=== PATIENT | male | born 2000 | race Two or more races ===

== ENCOUNTER 2022-07-31 15:02 | Emergency (ER) | payer SELFPAY ==
[2022-07-31 16:25] LABS: BILIRUBIN,URINE NEGATIVE (NEGATIVE); GLUCOSE, URINE (UA) NEGATIVE (NEGATIVE); KETONES,URINE (UA) NEGATIVE (NEGATIVE); LEUKOCYTE ESTERASE, URINE NEGATIVE (NEGATIVE); NITRITE,URINE NEGATIVE (NEGATIVE); OCCULT BLOOD,URINE MODERATE (NEGATIVE); PROTEIN,URINE NEGATIVE (NEGATIVE); UROBILINOGEN,URINE 0.2 (NORMAL) E.U./dL (NORMAL)
[2022-07-31 16:29] LABS: BASOPHILS % (AUTO) 0.2 %; EOSINOPHILS % (AUTO) 0.3 %; HCT - HEMATOCRIT 45.7 % (42.0-52.0); LYMPHOCYTES % (AUTO) 15.3 %; MEAN CORPUSCULAR HEMOGLOBIN 28.5 pg (27.0-31.0); MEAN CORPUSCULAR HGB CONC 32.8 g/dL (32.0-36.0); MEAN CORPUSCULAR VOLUME 86.9 fL (80.0-94.0); MEAN PLATELET VOLUME 8.9 fL (7.4-11.4); MONOCYTES # (AUTO) 0.8 10^3/uL (0.0-1.0); NEUTROPHILS # (AUTO) 10.2 10^3/uL (1.5-6.6); NEUTROPHILS % (AUTO) 77.9 %; PLT - PLATELET COUNT 368 10^3/uL (130-450); RED BLOOD COUNT 5.26 10^6/uL (4.70-6.10); RED CELL DISTRIBUTION WIDTH 11.9 % (12.0-15.0); WHITE BLOOD COUNT 13.1 x10^3/uL (4.8-10.8)
[2022-07-31 16:31] LABS: CLARITY,URINE CLOUDY (CLEAR)
[2022-07-31 16:38] LABS: ALBUMIN 4.4 g/dL (3.2-5.5); BILIRUBIN,TOTAL 0.4 mg/dL (0.2-1.0); CALCIUM 9.5 mg/dL (8.5-10.3); CREATININE 0.8 mg/dL (0.6-1.2); POTASSIUM 3.5 mmol/L (3.5-5.0); TOTAL PROTEIN 8.9 g/dL (6.7-8.2)
[2022-07-31 16:47] LABS: BACTERIA,URINE None Seen /HPF (None Seen); SQUAMOUS EPITHELIAL CELL,UR NONE SEEN (<= Few); WBC,URINE 0-3 /HPF (0-3)
[2022-07-31] MEDS ORDERED: KETOROLAC 30 MG/ML VIAL IVP STA (18:13)
[2022-07-31] MEDS ORDERED: iohexoL-300 100 ML VIAL ONE (18:15)
--- NOTE | 2022-07-31 18:15 | ED Physician Documentation ---
PD HPI ABD PAIN - Stated complaint Stated Complaint: R SIDE RIB PAIN - Chief complaint Chief Complaint: Abd Pain - History obtained from History obtained from: Patient - History of Present Illness Timing - onset: How many days ago (5) Timing - duration: Days (5) Timing - details: Gradual onset Pain level max: 6 Pain level now: 5 Quality: Aching, Pain Location: RUQ Radiation: No: Chest, , Lower back, Left flank, Left shoulder, Right flank, Right shoulder, Upper back Worsened by: Eating, Moving, Palpation Associated symptoms: Nausea, Vomiting, Diarrhea. No: Fever, Hematemesis, Constipation, Melena, Hematochezia, Dysuria - Additional information Additional information: Patient is a 22-year-old male that states that about 5 days ago he developed right upper quadrant abdominal/rib pain. He states he had been coughing for about 4 days prior to this. The cough has since resolved but he still has intermittent pain. The pain lasts for about 30 minutes at a time. He states tonight it started after drinking milk and eating pie. No fevers. He states he has had some nausea, vomited once and diarrhea x1. Has not had similar symptoms previously. Does not smoke or drink. No drug use. No history of gallbladder issues. The pain is worse with eating, drinking, palpation, movement. Better with massage Review of Systems Ten Systems: 10 systems reviewed and negative Constitutional: denies: Fever, Chills Nose: denies: Rhinorrhea / runny nose, Congestion : denies: Dysuria, Frequency, Hesitancy Skin: denies: Rash Neurologic: denies: Headache PD PAST MEDICAL HISTORY - Past Medical History Past Medical History: No - Past Surgical History Past Surgical History: No - Present Medications Home Medications: Ambulatory Orders Medication Instructions Recorded Confirmed HYDROcod/ACETAM 5/325 [[place] 5/325] 1 - 2 ea PO Q6H PRN #12 tablet 07/31/22 Ondansetron Odt [Zofran] 4 mg TL Q6H PRN #10 tablet 07/31/22 - Allergies Allergies/Adverse Reactions: Allergies Allergy/AdvReac Type Severity Reaction Status Date / Time No Known Drug Allergies Allergy Verified 07/31/22 15:27 - Living Situation Living Situation: reports: With family Living Arrangement: reports: At home - Social History Does the pt smoke?: No Does the pt have substance abuse?: No - Family History Family history: reports: Non contributory PD ED PE NORMAL - Vitals Vital signs reviewed: Yes - General General: Alert and oriented X 3, No acute distress - HEENT HEENT: PERRL, Moist mucous membranes - Neck Neck: Supple, no meningeal sign - Cardiac Cardiac: RRR, No murmur, Strong equal pulses - Respiratory Respiratory: No respiratory distress, Clear bilaterally - Abdomen Abdomen: Soft, Non distended, Other (Tender to palpation right upper quadrant. The tenderness is near the gallbladder but has a negative Wetzel sign. No tenderness in the right lower quadrant. He does have some tenderness over the 11th and 12th ribs. No crepitus. Otherwise benign abdominal exam.) - Back Back: No CVA TTP, No spinal TTP - Derm Derm: Warm and dry - Extremities Extremities: No edema - Neuro Neuro: Alert and oriented X 3 - Psych Psych: Normal mood, Normal affect Results - Vitals Vitals: Vital Signs - 24 hr 07/31/22 07/31/22 07/31/22 15:13 18:14 19:15 Temperature 36.7 C 37.3 C Heart Rate 66 74 82 Respiratory 16 20 16 Rate Blood Pressure 126/68 116/67 107/68 O2 Saturation 99 99 99 Oxygen O2 Source Room air - Labs Labs: Laboratory Tests 07/31/22 07/31/22 07/31/22 16:15 16:20 16:20 WBC 13.1 H RBC 5.26 Hgb 15.0 Hct 45.7 MCV 86.9 MCH 28.5 MCHC 32.8 RDW 11.9 L Plt Count 368 MPV 8.9 Neut # (Auto) 10.2 H Lymph # (Auto) 2.0 Carlton # (Auto) 0.8 Eos # (Auto) 0.0 Baso # (Auto) 0.0 Absolute Nucleated RBC 0.00 Nucleated RBC % 0.0 Sodium 136 Potassium 3.5 Chloride 99 L Carbon Dioxide 26 Anion Gap 11.0 BUN 18 Creatinine 0.8 Estimated GFR (MDRD) 120 Glucose 141 H Calcium 9.5 Total Bilirubin 0.4 AST 25 ALT 32 Alkaline Phosphatase 136 H Total Protein 8.9 H Albumin 4.4 Globulin 4.5 H Albumin/Globulin Ratio 1.0 Lipase 36 Urine Color YELLOW Urine Clarity CLOUDY Urine pH 6.0 Ur Specific [place] >=1.030 H Urine Protein NEGATIVE Urine Glucose (UA) NEGATIVE Urine Ketones NEGATIVE Urine Occult Blood MODERATE H Urine Nitrite NEGATIVE Urine Bilirubin NEGATIVE Urine Urobilinogen 0.2 (NORMAL) Ur Leukocyte Esterase NEGATIVE Urine RBC 6-10 H Urine WBC 0-3 Ur Squamous Epith Cells NONE SEEN Urine Bacteria None Seen Ur Microscopic Review INDICATED Urine Culture Comments NOT INDICATED - Rads (name of study) CT abdomen and pelvis Radiology: Final report received, EMP read contemporaneously, See rad report Right upper quadrant ultrasound Radiology: Final report received, EMP read contemporaneously, See rad report Chest x-ray Radiology: Final report received, EMP read contemporaneously, See rad report PD MEDICAL DECISION MAKING - ED course Complexity details: reviewed results, re-evaluated patient, considered differential, d/w patient, d/w family ED course: Chest x-ray has no acute abnormalities. Right upper quadrant ultrasound has no acute abnormalities. The CT scan shows an appendix that is at the upper limits of normal, minimal appearance of inflammatory change. Possible developing appendicitis not excluded. The patient has had symptoms for 5 days. Does not have any right lower quadrant tenderness on exam even with deep palpation. I feel that appendicitis is unlikely in this patient. However appendicitis precautions were given at bedside. The likely cause of his pain is the mild appearance of fat stranding in the right mid abdomen inferior to the gallbladder fossa with thickening of the adjacent colon, likely that this is a colitis. Possible epiploic appendagitis? Patient's pain is well controlled here. Patient is very well-appearing, nontoxic. Eating and drinking without difficulty here. We will place him on a small amount of pain medication for home. per diem interpreter was used for all interactions including the stressing of the importance of following up closely if he develops right lower quadrant or worsening abdominal pain. Patient and family counseled regarding signs and symptoms for which I believe and urgent re-evaluation would be necessary. Patient with good understanding of and agreement to plan and is comfortable going home at this time This document was made in part using voice recognition software. While efforts are made to proofread this document, sound alike and grammatical errors may occur. IMPRESSION: Appendix is at the upper limits of normal with minimal appearance of inflammatory change. Early developing appendicitis cannot be definitively excluded. However, appearance is somewhat indeterminate. No appendicolith. Mild appearance of fat stranding in the right mid abdomen inferior to the gallbladder fossa with very minimal appearance of thickening within the adjacent ascending colon. It is noted that this area is not within the same region as the appendix. Inflammation within this region secondary to fat inflammation and secondary: Inflammatory change or small area of colitis with adjacent fat stranding cannot be excluded. The inferior aspect of the gallbladder appears normal without visualized stone or gross wall thickening. Departure - Departure Disposition: 01 Home, Self Care Clinical Impression: Colitis Abdominal pain Qualifiers: Abdominal location: right upper quadrant Qualified Code(s): R10.11 - Right upper quadrant pain Condition: Good Instructions: ED Abdominal Pain Unkn Cause Male, ED Abdominal Pain Excl Appendx Male Follow-Up: [facility] [place] [Provider Group] [facility] [place] [Provider Group] Prescriptions: HYDROcod/ACETAM 5/325 [[place] 5/325] 1 - 2 ea PO Q6H PRN #12 tablet PRN Reason: Pain Ondansetron Odt [Zofran] 4 mg TL Q6H PRN #10 tablet PRN Reason: Nausea / Vomiting Print Language: Italian Comments: Your prescriptions were sent to [facility] in [place]. Please follow-up with your doctor for further care. Return if you worsen. Your CT scan shows mild inflammation around your colon. This is likely the cause of your pain. Your appendix may have a very small amount of inflammation as well, but you have no pain or tenderness here. If you develop tenderness or pain in the lower part of your abdomen, you need to return for repeat evaluation. Your ultrasound shows a normal gallbladder. Your x-ray is normal as well. I am prescribing a short course of narcotic pain medication for you. These are potentially dangerous and addictive medications that should be used carefully. These medications may constipate you. Take an hjaf-rzn-okpemdf stool softener (docusate) twice daily with plenty of water while taking these medications. If you go 24 hours without a bowel movement, take [id number] miralax, per package instructions. Do not drink or drive while taking these medications. If you received narcotic or sedating medications while in the emergency department, do not drive for 24 hours. Store this medication in a safe, secure place and out of reach of children. It is a violation of federal law to give or sell this medication to another person or to use in a manner other than prescribed. The ED will not refill narcotic prescriptions, including prescriptions lost or stolen. To dispose of unwanted medications: 1. [facility] at [address] in [place] has a medication drop box. They accept prescription medications (in pill form) Tuesday through Tuesday 9:00 a.m. to 5:00 p.m. 2. [facility] accepts prescription medications (in pill form only) for disposal year round. Call for more informati on. 3. Contact the [facility] for the next [facility] sponsored prescription drug collection event. , [id number], or x7310; Bernice recetas fueron enviadas a [facility] en [place]. Por favor, pilar un seguimiento con lam mdico para recibir atencin adicional. Regresa si empeoras. Lam tomografa computarizada muestra theodora inflamacin leve alrededor de lam colon. Esta es probablemente la causa de lam dolor. Lam apndice tambin puede tener theodora cantidad muy pequea de inflamacin, shameka no tiene dolor ni sensibilidad aqu. Si desarrolla sensibilidad o dolor en la parte inferior de lam abdomen, debe regresar para repetir la evaluacin. Lam ultrasonido muestra theodora vescula biliar normal. Lam radiografa tambin es normal. Le estoy recetando un ciclo corto de analgsicos narcticos. Estos son medicamentos potencialmente peligrosos y adictivos que deben usarse con cuidado. Estos medicamentos pueden causarle estreimiento. [place] un ablandador de heces de venta veronica (docusato) dos veces al da con abundante agua mientras galen estos medicamentos. Si pasa 24 horas sin defecar, tome miralax de venta veronica, segn las instrucciones del paquete. No shell ni conduzca mientras galen estos medicamentos. Si recibi medicamentos narcticos o sedantes mientras estaba en el departamento de emergencias, no conduzca irina 24 horas. Guarde no medicamento en un lugar seguro y fuera del alcance de los nios. Es theodora violacin de la [employer]iz[employer] o [employer] rocker no medicamento a otra persona o usarlo de theodora manera diferente a la recetada. El ED no volver a surtir recetas de narcticos, incluidas las recetas perdidas o robadas. Para desechar medicamentos no deseados: 1. [facility] [place] [facility] en [facility] [address] en [place] tiene un buzn de medicamentos. Aceptan medicamentos recetados (en forma de pastillas) de lunes a viernes de 9:00 a. m. a 5:00 p. m. 2. El [facility] [place] [facility] acepta medicamentos recetados (solo en forma de pldora) para lam eliminacin irina todo el ao. Shahana schaffer para ms informacin. 3. Comunquese con el alguacil del [facility] para conocer el prximo evento de recoleccin de medicamentos recetados patrocinado por la AMY. , [phone], o [phone]; More about this source textSource text required for additional translation information Send feedback Side panels Discharge Date/Time: 07/31/22 20:13
--- NOTE | 2022-07-31 18:44 | XRAY Report ---
PROCEDURE: Chest 2 View X-Ray INDICATIONS: R chest pain, cough TECHNIQUE: 2 views of the chest were acquired. COMPARISON: None FINDINGS: Surgical changes and devices: None. Lungs and pleura: No pleural effusions or pneumothorax. Lungs are clear. Mediastinum: Mediastinal contours are normal. Heart size is normal. Bones and chest wall: No suspicious bony abnormalities. Soft tissues appear unremarkable. IMPRESSION: No acute pulmonary process. Reviewed by: Kimberly Ledesma MD on 07/31/2022 6:43 PM PST Approved by: Kimberly Ledesma MD on 07/31/2022 6:43 PM [facility] Station ID: [id number]
--- NOTE | 2022-07-31 18:54 | CT Report ---
PROCEDURE: ABDOMEN/PELVIS W INDICATIONS: R sided abd pain CONTRAST: 100ml omni 300 TECHNIQUE: After the administration of IV contrast, 5 mm thick sections acquired from the diaphragms to the symp hysis. 5 mm thick coronal and sagittal reformats were acquired. For radiation dose reduction, the f ollowing was used: automated exposure control, adjustment of mA and/or kV according to patient size. COMPARISON: None. FINDINGS: Image quality: Excellent. ABDOMEN: Lung bases: Lung bases are clear. Heart size is normal. Solid organs: Liver and spleen are normal in size and enhancement. Gallbladder is unremarkable Basil iary system is non dilated. Pancreas enhances normally. No adrenal nodules. Kidneys demonstrate no rmal size and enhancement, without hydronephrosis. Peritoneum and bowel: Bowel loops are nonobstructive. No free fluid or air. Appendix is at the uppe r limits of normal in size measuring 6 mm. There is minimal appearance of surrounding inflammatory ch danish. In addition, there is mild appearance of fat stranding within the right mid hemiabdomen lateral ly immediately inferior to the gallbladder fossa. This area is not directly located adjacent to the a ppendix. Adjacent bowel has a very minimal appearance of thickening. Nodes and vessels: No retroperitoneal or mesenteric adenopathy by size criteria. Aorta and inferior vena cava are normal in size. Miscellaneous: No ventral hernias. PELVIS: Genitourinary: Bladder wall thickness is normal. Miscellaneous: No inguinal hernias or adenopathy. Bones: No suspicious bony lesions. No vertebral body compression fractures. IMPRESSION: Appendix is at the upper limits of normal with minimal appearance of inflammatory change. Early devel oping appendicitis cannot be definitively excluded. However, appearance is somewhat indeterminate. No appendicolith. Mild appearance of fat stranding in the right mid abdomen inferior to the gallbladder fossa with very minimal appearance of thickening within the adjacent ascending colon. It is noted that this area is not within the same region as the appendix. Inflammation within this region secondary to fat inflamma tion and secondary: Inflammatory change or small area of colitis with adjacent fat stranding cannot b e excluded. The inferior aspect of the gallbladder appears normal without visualized stone or gross w all thickening. Reviewed by: Kimberly Ledesma MD on 07/31/2022 6:53 PM PST Approved by: Kimberly Ledesma MD on 07/31/2022 6:53 PM PST Station ID: [id number]
[2022-07-31] MEDS ORDERED: iohexoL-300 100 ML VIAL IVP ONE (19:15)
[2022-07-31 19:18] VITALS: BP 107/68
--- NOTE | 2022-07-31 19:26 | Ultrasound Report ---
PROCEDURE: Abdomen Limited INDICATIONS: RUQ abd pain TECHNIQUE: Real-time scanning was performed of the abdominal and retroperitoneal organs, with image documentatio n. COMPARISON: None. FINDINGS: Liver: Liver is normal in size and homogeneous in echotexture. Gallbladder: There is a nonmobile focus of increased echogenicity suggestive of polyp measuring 4 x 3 x 3 mm. Wall thickness is normal measuring 1.6 mm. Biliary ducts: Intrahepatic bile ducts are non-dilated. Extrahepatic bile duct caliber measures 5.8 mm. Normal is 6-7 mm or less in diameter, or 10 mm or less post-cholecystectomy. Pancreas: Visualized portions of the pancreas are sonographically normal. Kidneys: Right kidney measures 9.4 cm long. No hydronephrosis or nephrolithiasis. No solid masses. Aorta: Visualized aorta is normal in caliber at less than 3 cm. IVC: Intrahepatic inferior vena cava is patent. Miscellaneous: No free abdominal fluid. IMPRESSION: Gallbladder polyp. No wall thickening. Reviewed by: Kimberly Ledesma MD on 07/31/2022 7:25 PM PST Approved by: Kimberly Ledesma MD on 07/31/2022 7:25 PM PST Station ID: [id number]
[2022-07-31] MEDS ORDERED: HYDROcod/ACETAM 5/325 MG TABLET PO STA (20:00)
[2022-07-31] MEDS ORDERED: ONDANSETRON ODT 4 MG TABLET TL STA (20:00)
== END 2022-07-31 20:13 | disposition home or self-care (01) ==
LOC: ED 15:02
DX: K52.9 Noninfective gastroenteritis and colitis, unspecified (principal); R07.81 Pleurodynia; R10.11 Right upper quadrant pain
CPT/HCPCS: 36415; 71046; 74177; 76705; 80053; 81001; 83690; 85025; 96374; 99284; A9270; Q0162; Q9967; 81003; 87086